=== PATIENT | male | born 1990 | race Hispanic/Latino ===

== ENCOUNTER 2022-04-10 10:10 | Emergency (ER) | payer SELFPAY ==
[~2022-04-10] VITALS: Ht 170.2 cm; Wt 95.3 kg
[2022-04-10] MEDS ORDERED: ZYRTEC10 MG PO (12:36)
[2022-04-10] MEDS ORDERED: MUCINEX DM ER1 EACH PO (12:36)
== END 2022-04-10 12:46 | disposition home or self-care (01) ==
LOC: ER 10:14
DX: R05.9 Cough, unspecified (principal); R09.89 Other specified symptoms and signs involving the circulatory and respiratory systems; R51.9 Headache, unspecified; J45.909 Unspecified asthma, uncomplicated; Z20.822 Contact with and (suspected) exposure to COVID-19
CPT/HCPCS: 71045; 99283; U0002

== ENCOUNTER 2023-10-19 16:18 | Emergency (ER) | payer SELFPAY ==
[~2023-10-19] VITALS: Ht 170.2 cm; Wt 93.0 kg
[~2023-10-19 16:18] MED LIST: MUCINEX DM ER1 EACH PO; ZYRTEC10 MG PO
[2023-10-19 18:55] VITALS: PULSE 72; RESP 15; TEMP 98.5; O2SAT 99
== END 2023-10-19 19:00 | disposition home or self-care (01) ==
LOC: ER 16:26
DX: S62.316A Displaced fracture of base of fifth metacarpal bone, right hand, initial encounter for closed fracture (principal); X79.XXXA Intentional self-harm by blunt object, initial encounter; Y92.89 Other specified places as the place of occurrence of the external cause; J45.909 Unspecified asthma, uncomplicated
CPT/HCPCS: 99282

== ENCOUNTER 2024-10-21 20:02 | Emergency (ER) | payer SELFPAY ==
[~2024-10-21] VITALS: Ht 170.2 cm; Wt 95.3 kg
[2024-10-21] MEDS ORDERED: ONDANSETRON HCL INJ 2MG/ML 2ML 2 MG/ML VIAL IV STA (20:08)
[2024-10-21 20:21] VITALS: TEMP 98.3
[2024-10-21] MEDS: SODIUM CHLORIDE 0.9% 1000ML 2,000 ML IV STA (20:31)
[2024-10-21] MEDS: METHYLPREDNISOLONE SOD SUCC 125 MG/2ML VIAL IV SCH (20:31)
[2024-10-21 20:40] LABS: BASOPHILS % 0.7 % (0.0-1.0); EOSINOPHILS % 6.8 % (0.0-6.0); LYMPHOCYTES % 39.4 % (18.0-39.1); MONOCYTES % 6.8 % (4.4-11.3); NEUTROPHILS % 46.1 % (38.7-80.0); RED CELL DISTRIBUTION WIDTH 13.6 % (11.7-14.4)
[2024-10-21] MEDS: ALBUTEROL/IPRATROPIUM 3 ML NEB NEB SCH (20:49)
[2024-10-21 20:50] VITALS: PULSE 75; RESP 18; O2SAT 94
[2024-10-21 21:06] LABS: EST GLOMERULAR FILTRATION RATE 117.0 ML/MIN (>=60)
[2024-10-21 21:12] LABS: CORONAVIRUS COVID-19 AG NEGATIVE (NEGATIVE)
[2024-10-21] MEDS ORDERED: VENTOLIN HFA18 GM INH (21:29)
[2024-10-21] MEDS ORDERED: PREDNISONE20 MG PO (21:29)
[2024-10-21] MEDS ORDERED: AZITHROMYCIN250 MG PO (21:29)
[2024-10-21 21:32] VITALS: PULSE 72; RESP 19
[2024-10-21 21:33] VITALS: PULSE 81; RESP 20; O2SAT 98
[2024-10-21] MEDS: ALBUTEROL/IPRATROPIUM 3 ML NEB NEB ONE (21:33)
[2024-10-21 21:42] VITALS: BP 120/86; TEMP 97.9
[2024-10-21 21:57] VITALS: PULSE 85; RESP 18; O2SAT 100
== END 2024-10-21 21:48 | disposition home or self-care (01) ==
LOC: ER 20:05
DX: R05.9 Cough, unspecified (principal); J45.901 Unspecified asthma with (acute) exacerbation; F17.210 Nicotine dependence, cigarettes, uncomplicated
CPT/HCPCS: 36415; 71046; 80053; 83518; 83690; 85025; 87070; 87426; 94640 ×2; 94760; 94799; 99284; J2919; J7030